=== PATIENT | female | born 2005 | race Caucasian/White ===

== ENCOUNTER 2023-04-01 14:17 | Outpatient (CLI) | payer MEDICAID ==
[~2023-04-01] VITALS: Ht 203.2 cm; Wt 78.2 kg
--- NOTE | 2023-04-01 14:30 | NUR ---
Pt arrived on unit ambulatory and with concerns for contractions since this morning. Pt denies any leaking of fluid or vaginal bleeding and reports normal movement. EFM and toco monitors started. SVE by this RN . Plan of care for labor assessment reviewed with pt and family at the bedside.
[2023-04-01] MEDS ORDERED: PRENATAL (14:47)
[2023-04-01 15:15] VITALS: BP 124/77; PULSE 107; TEMP 98.1
--- NOTE | 2023-04-01 15:55 | NUR ---
SVE done with no change noted. Orders for discharge home received. Discharge instructions and follow up care reviewed with pt and family at the bedside.
[2023-04-02] MEDS ORDERED: MOTRIN 800800 MG/TAB PO (20:11)
== END 2023-04-01 16:10 | disposition home or self-care (01) ==
LOC: LDRO 14:17
DX: Z34.93 Encounter for supervision of normal pregnancy, unspecified, third trimester (principal); Z3A.39 39 weeks gestation of pregnancy

== ENCOUNTER 2023-04-02 07:38 | Inpatient (IN) | payer MEDICAID ==
[2023-04-02] VITALS (46 sets, daily range): BP systolic 86–173; BP diastolic 51–89; PULSE 55–139; TEMP 98.4
[~2023-04-02] VITALS: Ht 160 cm; Wt 78.2 kg
[~2023-04-02 07:38] MED LIST: PRENATAL
--- NOTE | 2023-04-02 07:50 | NUR ---
PT AMBULATORY TO UNIT WITH BOYFRIEND AND 4 OTHER FAMILY MEMBERS. INFORMED PT THAT SHE CAN HAVE 2 VISITORS IN LABOR. PT TAKEN TO ROOM, CHANGED INTO GOWN, VOIDED, AND COMFORTABLE IN BED. EFM CAT 1. VS STABLE. SVE AT THIS TIME -/-2. PT TOLERATED WELL. AMNITRACE INCONCLUSIVE. ROM+ SENT TO LAB.
[2023-04-02 09:03] LABS: BASO % 0.2 % (0.0-2.0); EOS # 0.1 K/mm3 (0.0-0.7); EOS % 0.8 % (0.0-4.0); GRAN # 11.5 K/mm3 (1.4-6.5); GRAN % 81.4 % (42.2-75.2); HEMOGLOBIN 12.4 g/dl (12.0-15.0); LYMPH # 1.5 K/mm3 (1.2-3.4); LYMPH % 10.8 % (20.0-51.0); MEAN CELL VOLUME 89 fl (80.0-95.0); MEAN CORPUSCULAR HEMOGLOBIN 31 pg (26-32); MEAN CORPUSCULAR HGB CONC 35 g/dl (33.0-37.0); MEAN PLATELET VOLUME 10.7 fl (7.4-10.4); MONO # 0.9 K/mm3 (0.1-0.6); MONO % 6.2 % (1.7-9.3); PLATELET COUNT 205 K/mm3 (130-400); REDCELL DISTRIBUTION WIDTH-CV 12.8 % (11.5-14.5)
[2023-04-02 09:19] LABS: HEMATOCRIT 35.7 % (35.0-45.0)
--- NOTE | 2023-04-02 10:39 | NUR ---
1040 REPORT GIVEN TO MAHOGANY FISHER RN TO ASSUME CARE AT THIS TIME.
--- NOTE | 2023-04-02 13:50 | NUR ---
[id number] PT OFF MONITOR, TRYING TO USE BATHROOM BEFORE EPIDURAL PLACEMENT. 1330 PT SITTING UP ON EDGE OF BED FOR EPIDURAL PLACEMENT. Dayo [employer] CONSULTANT AT BEDSIDE AND EXPLAINING RISKS/PROCEDURE TO PT. PULSE OX ON FINGER OF RIGHT HAND. FHR INTERMITTENTLY TRACING DUE TO MATERNAL POSITION. THIS RN COMFORTING PT THROUGH PROCEDURE. PT TOLERATING WELL. 1341 TEST DOSE GIVEN. 1347 PT REPOSITIONED. SAFETY PRECAUTIONS AND POC DISCUSSED. PT VERBALIZES UNDERSTANDING.
--- NOTE | 2023-04-02 15:40 | NUR ---
1500 PT YELLING OUT IN PAIN PT PUSHES EPIDURAL BOLUS BUTTON. 1502 T ROSAURA PHYSICAL SECURITY MANAGER CALLED. 1503 T ROSAURA PHYSICAL SECURITY MANAGER AND THIS RN AT BEDSIDE. 1520 EPIDURAL BOLUS BUTTON PUSHED AGAIN. T ROSAURA PHYSICAL SECURITY MANAGER GIVES BOLUS. SEE ANESTHESIA NOTES FOR MORE INFORMATION. 1525 PT TOLERATING CONTRACTIONS WELL. 1540 DR GUSMAN AT BEDSIDE. SVE 8/+1. PT SLEEPING THROUGH CONTRACTIONS NOW.
--- NOTE | 2023-04-02 16:00 | NUR ---
[address] GUSMAN /+1 INTERMITTENT LATE DECELERATIONS FOLLOW. PT REPOSITIONED TO BEDREST PEANUT BALL LEFT LATERAL.
--- NOTE | 2023-04-02 18:30 | NUR ---
ARRIVED TO PT BEDSIDE AT 1816. 1817: OF VIABLE MALE INFANT. PLACED ON MATERNAL ABD, DELAYED CORD CLAMPING PER . CORD CLAMPED X2, FOB CUT THE CORD. CORD BLOOD OBTAINED PER , SENT TO LAB PER THIS RN. INFANT THEN MOVED UP TO MATERNAL CHEST FOR SKIN TO SKIN, CARE OF ASSUMED BY [facility]ORE AT THIS TIME. 1820: OF INTACT PLACENTA PER . REPAIR OF 2ND DEGREE PERINEAL AND MEDIAN EPISIOTOMY PER . 1824: REPAIR COMPLETED. PT PERICARE COMPELTE AT THIS TIME, PT REPOSITIONED AND ICE PACK PLACED ON PERIAREA. 1830: RECOVERY VITALS BEGIN AT THIS TIME. NO OTHER CONCERNS WITH THE PATIENT AT THIS TIME.
--- NOTE | 2023-04-02 18:30 | NUR ---
1710 DR MIRANDA ON UNIT 1720 DR MIRANDA AT PT'S BEDSIDE. INTRODUCING HIMSELF AND DISCUSSING POC. SVE BY DR MIRANDA /+2. 1742 THIS RN BEGINS PUSHING WITH PT. [address] IN DR MIRANDA AND NURSERY NURSE FOR DELIVERY 181 DR MIRANDA CUT EPISIOTOMY. 181 SPONTANEOUS DELIVERY OF VIABLE MALE INFANT. INFANT TO MOTHER'S ABDOMEN. INFANT BULB SUCTIONED AND STIMULATED. CORD CLAMPED BY DR MIRANDA AND CUT BY FOB. INFANT TO MOTHER'S CHEST. 182 SPONTANEOUS DELIVERY OF PLACENTA. PITOCIN BOLUS STARTED PER PROTOCOL. DR MIRANDA STARTS TO REPAIR EPISIOTOMY AND 2ND DEGREE PERINEAL LACERATION. FUNDAL MASSAGE DONE. MODERATE AMT OF BLEEDING NOTED. FUNDUS FIRMS UP. MIDLINE. BLEEDING IMPROVING. 1823 THIS RN GIVES REPORT TO CHUCKIE TAYLOR RN.
[2023-04-02] MEDS ORDERED: MOTRIN 800800 MG/TAB PO (20:11)
--- NOTE | 2023-04-02 21:10 | NUR ---
ASSESSMENT OF PATIENT AT THIS TIME. PT IS STILL UNABLE TO MOVE HER LEGS. SHE CAN HOWEVER WIGGLE HER FEET. AFTER SHE FINISHES EATING, THE PATIENT WILL CALL SO WE CAN ATTEMPT TO GET TO STAND AT THE BEDSIDE.
--- NOTE | 2023-04-02 22:00 | NUR ---
PT UP TO BATHROOM VIA [id number] PERICARE COMPLETED. PT IS UNABLE TO VOID AT THIS TIME, BUT ATTEMPT WAS MADE. EDUCATED PATIENT NOT TO PUSH D/T THE MEDIAN EPISIOTOMY AND 2ND DEGREE VAGINAL TEAR. CHANGED PATIENT INTO A CLEAN GOWN, AND MOVED TO ROOM 216 VIA [employer] DIFFICULTY WALKING D/T EPIDURAL. PT DENIES ANY PAIN. PT IS ORIENTED TO ROOM. PT IS IN BED, WATER AND CALL LIGHT ON BEDSIDE TABLE WITHIN REACH. NO OTHER CONCERNS REGARDING THE PATIENT AT THIS TIME.
[2023-04-03 06:36] LABS: HEMATOCRIT 32.7 % (35.0-45.0); HEMOGLOBIN 10.9 g/dl (12.0-15.0)
[2023-04-03 07:52] VITALS: BP 112/64; PULSE 76; TEMP 98.2
--- NOTE | 2023-04-03 09:45 | NUR ---
Initial visit; Parents thanked Underco[employer] for offering congratulations and God's blessings for the of their son. Undercoater thanked family for choosing [facility].
[2023-04-03 21:00] VITALS: BP 111/64; PULSE 86; TEMP 97.9
[2023-04-04 07:43] VITALS: BP 122/73; PULSE 89; TEMP 97.4
== END 2023-04-04 11:28 | disposition home or self-care (01) | DRG 807 ==
LOC: LDRO 07:38 → LDR 08:22 → OB 08:22
PROVIDERS: Obstetrics & Gynecology; ADMIT Obstetrics & Gynecology
PROC: 10E0XZZ Delivery of Products of Conception, External Approach (ICD-10-PCS; principal; 2023-04-02)
PROC: 0W8NXZZ Division of Female Perineum, External Approach (ICD-10-PCS; 2023-04-02)
PROC: 3E033VJ Introduction of Other Hormone into Peripheral Vein, Percutaneous Approach (ICD-10-PCS; 2023-04-02)
DX: O77.0 Labor and delivery complicated by meconium in amniotic fluid (principal); Z37.0 Single live birth; Z3A.39 39 weeks gestation of pregnancy; O70.1 Second degree perineal laceration during delivery; Z23 Encounter for immunization
CPT/HCPCS: J2590; J2795; J7120